=== PATIENT | female | born 1940 | race Caucasian/White ===

== ENCOUNTER 2017-09-02 18:05 | Inpatient (IN) | payer MEDICARE, OTHER ==
[~2017-09-02] VITALS: Ht 152.4 cm; Wt 55.3 kg
[2017-09-02] MEDS ORDERED: MG T1TAB4 PO (18:51)
[2017-09-02] MEDS ORDERED: TRAZ-144 PO (18:51)
[2017-09-02] MEDS ORDERED: LISI-658 PO (18:51)
[2017-09-02] MEDS ORDERED: ACET325T53 PO (18:51)
[2017-09-02] MEDS ORDERED: ACET500C4 PO (18:51)
[2017-09-02] MEDS ORDERED: CHOL400T58 PO (18:51)
[2017-09-02] MEDS ORDERED: HYDR50TA68 PO ×2 (18:51)
[2017-09-02] MEDS ORDERED: SIME80TA15 PO (18:51)
[2017-09-02] MEDS ORDERED: POLY17PO4 PO (18:51)
[2017-09-02] MEDS ORDERED: CLON0.1T14 PO (18:51)
[2017-09-02] MEDS ORDERED: CALC500T3 PO (18:51)
[2017-09-02] MEDS ORDERED: BUSP10TA3 PO (18:51)
[2017-09-02] MEDS ORDERED: ACET-73 PO (18:51)
[2017-09-02] MEDS ORDERED: VENL150C2 PO (18:51)
[2017-09-02] MEDS ORDERED: LORA-258 PO ×3 (18:51)
[2017-09-02] MEDS ORDERED: SENN-167 PO (18:51)
[2017-09-02] MEDS ORDERED: AMLO10TA4 PO (18:51)
[2017-09-02] MEDS ORDERED: LANS15TA5 PO (18:51)
[2017-09-02] MEDS ORDERED: DOCU-141 PO (18:51)
--- NOTE | 2017-09-02 19:05 | NUR ---
PT IS IN ROOM #1B. DR VARELA EVALUATED THE PT.
--- NOTE | 2017-09-02 19:26 | NUR ---
Received report from FERMIN Noland. Assumed care of pt at this time. Pt ambulated to and from br with steady shuffled gait. Labs drawn and sent. UA collected and sent. Xray obtained. Pt refuses CT. Dr. Gagnon notified. Pt awaiting med clearance for admission to [facility]
[2017-09-02 19:34] LABS: *BILIRUBIN,URIN NEGATIVE (NEGATIVE); *BLOOD, URINE Trace-intact (NEGATIVE); *CLARITY,URINE CLEAR (CLEAR); *COLOR,URINE YELLOW (YELLOW); *KETONES,URINE NEGATIVE (NEGATIVE); *PROTEIN,URINE NEGATIVE (NEGATIVE); *UROBILINOGEN,URINE 0.2 E.U./dl (NORMAL); LEUKOCYTE ESTERASE ,URINE NEGATIVE (NEGATIVE); NITRITE, URINE NEGATIVE (NEGATIVE); UGLUCOSE NEGATIVE (NEGATIVE)
[2017-09-02 19:39] LABS: BASOPHILS # (AUTO) 0.1 K/uL (0.0-8.0); BASOPHILS % (AUTO) 0.8 % (0.0-2.0); EOSINOPHILS % (AUTO) 0.5 % (0.0-7.0); HEMATOCRIT 43.4 % (37-47); HEMOGLOBIN 14.8 G/DL (12.0-16.0); LYMPHOCYTES # (AUTO) 0.9 K/UL (0.8-4.8); LYMPHOCYTES % (AUTO) 10.4 % (20.5-51.5); MEAN CORPUSCULAR HEMOGLOBIN 29.9 UUG (27.0-31.0); MEAN CORPUSCULAR HGB CONC 34 g/dL (32.0-37.0); MEAN CORPUSCULAR VOLUME 87.8 FL (81.0-99.0); MONOCYTES # (AUTO) 0.5 K/UL (0.1-1.30); MONOCYTES % (AUTO) 5.6 % (0.0-11.0); NEUTROPHILS % (AUTO) 82.7 % (38.5-71.5); PLATELET COUNT (AUTO) 254 K/UL (150-450); RED BLOOD CELL COUNT(AUTO) 4.94 MIL/UL (4.2-5.4); WHITE BLOOD COUNT (AUTO) 8.5 K/UL (4.0-11.2)
[2017-09-02 19:43] LABS: CARBON DIOXIDE 24 mmol/L (21-32); CHLORIDE 103 mmol/L (98-107); GLUCOSE 207 mg/dL (74-106); POTASSIUM 3.5 mmol/L (3.5-5.1); UREA NITROGEN, BLOOD 17 mg/dL (7-18)
[2017-09-02 19:48] LABS: ALANINE AMINOTRANSFERASE 30 U/L (14-59); ALKALINE PHOSPHATASE 67 U/L (50-136); ASPARTATE AMINOTRANSFERASE 22 U/L (15-37); BILIRUBIN,DIRECT 0.1 mg/dL (0.0-0.2); BILIRUBIN,TOTAL 0.2 mg/dL (0.2-1.0); TOTAL PROTEIN, SERUM 8.5 g/dL (6.4-8.2)
[2017-09-02 19:51] LABS: ACETAMINOPHEN < 2.0 ug/mL (10-30)
[2017-09-02 19:52] LABS: ETHANOL < 3 MG/DL (0-0)
[2017-09-02 20:05] LABS: *AMPHETAMINE, URINE NEGATIVE (NEGATIVE); *BARBITURATE, URINE NEGATIVE (NEGATIVE); *CANNABINOID, URINE NEGATIVE (NEGATIVE); *COCCAINE, URINE NEGATIVE (NEGATIVE); *OPIATE, URINE NEGATIVE (NEGATIVE); *PHENCYCLIDINE SCREEN,URINE NEGATIVE (NEGATIVE)
[2017-09-02 20:11] LABS: BACTERIA,URINE FEW /HPF (NONE SEEN); SQUAMOUS EPITHELIAL CELL,UR FEW /HPF (NONE SEEN); WBC,URINE 0-3 /HPF (0-3)
[2017-09-02] MEDS ORDERED: LEVOFLOXACIN 750 MG/D5W 150 ML PIGGYBACK IV ONE (20:15)
[2017-09-02] MEDS ORDERED: IV NORMAL SALINE 1000 ML BAG IV ONE (20:15)
[2017-09-02 20:33] LABS: THYROID STIMULATING HORMONE 2.287 mIU/mL (0.358-3.740)
[2017-09-02] MEDS ORDERED: LORAZEPAM 2 MG/1 ML VIAL IV ONE (20:45)
--- NOTE | 2017-09-02 21:10 | NUR ---
Call placed to [facility], Dr. Webb will be paged.
[2017-09-02] MEDS ORDERED: LEVOFLOXACIN 750MG/D5W 150 ML IV ONE (21:34)
[2017-09-02] MEDS ORDERED: LORAZEPAM 2 MG/1 ML VIAL ONE (21:35)
[2017-09-02 22:30] VITALS: BP 157/88
--- NOTE | 2017-09-02 22:49 | NUR ---
discontinue ron ,d/c patient to pysch unit .
--- NOTE | 2017-09-02 23:00 | NUR ---
received to care, from the emergency room, on a 72 hour hold for being gravely disabled, a resident of the [facility]. according to the chart, she has been increasingly depressed and anxious, to the extent that she has been unable to drink water, or to get proper sleep. upon arrival on the unit, she was cooperative, but anxious. PRN medications offered, but she declined. currently sitting at nurses station. no distress noted.
[2017-09-02 23:30] VITALS: BP 142/88
[2017-09-02] MEDS ORDERED: MAGNESIUM HYDROXIDE 30 ML LIQUID UDC PO PRN (23:30)
[2017-09-02] MEDS ORDERED: MAG HYDROX/AL HYDROX/SIMETH 30 ML LIQUID UDC PO PRN (23:30)
[2017-09-02] MEDS ORDERED: TEMAZEPAM 7.5 MG CAPSULE PO PRN (23:30)
[2017-09-03] VITALS (8 sets, daily range): BP systolic 133–200; BP diastolic 70–103
--- NOTE | 2017-09-03 00:08 | NUR ---
PRN restoril given for insomnia.
[2017-09-03] MEDS ORDERED: TEMAZEPAM 7.5 MG CAPSULE ONE (00:21)
[2017-09-03] MEDS ORDERED: ACETAMINOPHEN 325 MG TABLET ONE (01:10)
[2017-09-03] MEDS: ACETAMINOPHEN 325 MG TABLET PO PRN ×2 (01:14→22:00)
--- NOTE | 2017-09-03 01:14 | NUR ---
PRN tylenol given for 5/10 bilateral shoulder pain.
--- NOTE | 2017-09-03 02:00 | NUR ---
appears to be asleep. no distress noted.
[2017-09-03] MEDS: LORAZEPAM 1 MG TABLET PO PRN ×3 (04:51→21:28)
--- NOTE | 2017-09-03 04:52 | NUR ---
pt is now awake. b/p is currently 200/100, hr 68. denies any sx, other than anxiety. PRN ativan was given, and [facility] was paged.
[2017-09-03] MEDS ORDERED: LORAZEPAM 1 MG TABLET ONE (04:58)
--- NOTE | 2017-09-03 05:20 | NUR ---
b/p is now 179/103, hr 100. still no call back from [facility]: exchange was recalled. they stated they would repage md site controller. darrel graham, nursing stewardess supervisor, was notified.
--- NOTE | 2017-09-03 05:40 | NUR ---
b/p is now 145/89, hr 94. will continue to monitor closely.
--- NOTE | 2017-09-03 06:00 | NUR ---
slept 2.0 hours, total.
--- NOTE | 2017-09-03 06:20 | NUR ---
ALISIA NEWMAN CALLED BACK, HE WAS NOTIFY OF NEW ADMISSION AND TO RECONCILE MEDICATION. HE STATED THAT HE WILL RECONCILE HER MEDICATION. PATIENT IN NO ACUTE DISTRESS. WILL CONTINUE TO MONITOR
[2017-09-03] MEDS ORDERED: hydrALAZINE HCL 50 MG TABLET PO PRN (06:45)
--- NOTE | 2017-09-03 06:45 | NUR ---
b/p is now 164/98, hr 92
[2017-09-03] MEDS: AMLODIPINE 10 MG TABLET PO SCH (09:04)
[2017-09-03] MEDS: LISINOPRIL 20 MG TABLET PO SCH ×2 (09:05→16:54)
[2017-09-03] MEDS: hydrALAZINE HCL 50 MG TABLET PO SCH ×2 (09:05→16:54)
--- NOTE | 2017-09-03 12:19 | NUR ---
Initial DC Plan: Patient currently resides at the [facility] [[address] [place] [address]; ]. Patient asked for assistance finding a different RESIDENTIAL because she is "too young" for their facility. SW will follow up with MD and patient to discuss most appropriate discharge plans. SW will form a safe and proper discharge.
[2017-09-03] MEDS ORDERED: TRAZODONE 50 MG TABLET PO ONE (23:00)
--- NOTE | 2017-09-03 23:00 | NUR ---
received to care, visible on unit, interacting with peers, pleasant upon approach. compliant with medications and staff direction. PRN ativan was given at 2127, for anxiety. shortly after that, she was seen by Dr Nguyen, who wanted to start her on trazadone, at bedtime. dose was not given tonight, because she was already asleep, when approached. as of 2299, she remains asleep. no distress noted. will continue to monitor closely.
--- NOTE | 2017-09-04 06:00 | NUR ---
slept 7.0 hours. continues to sleep. no distress noted.
[2017-09-04 07:30] VITALS: BP 148/82
[2017-09-04] MEDS: AMLODIPINE 10 MG TABLET PO SCH (08:16)
[2017-09-04] MEDS: hydrALAZINE HCL 50 MG TABLET PO SCH ×2 (08:16→17:07)
[2017-09-04] MEDS: LISINOPRIL 20 MG TABLET PO SCH ×2 (08:17→17:07)
[2017-09-04] MEDS: CLONAZEPAM 0.5 MG TABLET PO SCH ×3 (08:19→17:07)
[2017-09-04] MEDS: ACETAMINOPHEN 325 MG TABLET PO PRN (09:44)
[2017-09-04 16:00] VITALS: BP 144/70
[2017-09-04 20:03] VITALS: BP 117/69
[2017-09-04] MEDS ORDERED: TRAZODONE 50 MG TABLET PO ONE (21:00)
[2017-09-04] MEDS ORDERED: TRAZODONE 50 MG TABLET ONE (21:16)
--- NOTE | 2017-09-04 22:00 | NUR ---
received to care, isolative in room, pleasant upon approach. interacts minimally with select peers. started on trazadone, this evening. seen by Dr Nguyen. as of 2199, she appears to be asleep. no distress noted. will continue to monitor closely.
--- NOTE | 2017-09-05 06:00 | NUR ---
slept 7.5 hours. continues to sleep. no distress noted.
[2017-09-05 07:30] VITALS: BP 147/80
[2017-09-05] MEDS: CLONAZEPAM 0.5 MG TABLET PO SCH ×3 (08:50→16:16)
[2017-09-05] MEDS: AMLODIPINE 10 MG TABLET PO SCH (08:50)
[2017-09-05] MEDS: LISINOPRIL 20 MG TABLET PO SCH ×2 (08:50→16:29)
[2017-09-05] MEDS: hydrALAZINE HCL 50 MG TABLET PO SCH ×2 (08:51→16:28)
[2017-09-05] MEDS: ACETAMINOPHEN 325 MG TABLET PO PRN ×2 (16:16→23:50)
[2017-09-05 16:33] VITALS: BP 142/79
[2017-09-05 19:46] VITALS: BP 146/80
[2017-09-05] MEDS: TRAZODONE 50 MG TABLET PO SCH ×2 (21:00→21:37)
--- NOTE | 2017-09-05 23:30 | NUR ---
received to care, visible on unit, interacting with peers, pleasant upon approach. compliant with medications and staff direction. as of 2329, she appears to be falling asleep. no distress noted. will continue to monitor closely.
[2017-09-06 07:30] VITALS: BP 138/76
[2017-09-06] MEDS: LISINOPRIL 20 MG TABLET PO SCH ×2 (08:41→16:50)
[2017-09-06] MEDS: AMLODIPINE 10 MG TABLET PO SCH (08:41)
[2017-09-06] MEDS: CLONAZEPAM 0.5 MG TABLET PO SCH ×3 (08:41→16:49)
[2017-09-06] MEDS: hydrALAZINE HCL 50 MG TABLET PO SCH ×2 (08:42→16:50)
[2017-09-06 16:28] VITALS: BP 120/68
[2017-09-06] MEDS: LORAZEPAM 1 MG TABLET PO PRN (19:41)
[2017-09-06 21:02] VITALS: BP 117/68
[2017-09-06] MEDS: TRAZODONE 50 MG TABLET PO SCH (21:54)
[2017-09-06] MEDS: ACETAMINOPHEN 325 MG TABLET PO PRN (22:25)
[2017-09-07 07:30] VITALS: BP 151/80
[2017-09-07] MEDS: CLONAZEPAM 0.5 MG TABLET PO SCH ×2 (08:31→12:14)
[2017-09-07] MEDS: AMLODIPINE 10 MG TABLET PO SCH (08:32)
[2017-09-07] MEDS: hydrALAZINE HCL 50 MG TABLET PO SCH (08:32)
[2017-09-07 08:33] VITALS: BP 151/80
[2017-09-07] MEDS: LISINOPRIL 20 MG TABLET PO SCH (08:33)
--- NOTE | 2017-09-07 09:59 | NUR ---
DC Note: Patient will be discharged to the [facility] [[address] [place] [address]; [phone]] via private transportation provided by the [facility]. VIK spoke with Vicenta at the [facility] to confirm discharge plans. Patient is aware and agreeable to discharge plans. Patient will follow up with Dr. Hendrix (Electrical Discharge Machine Operator) and Dr. Marta Ty (Psychiatrist) [[phone]]. Addendum: 09/07/17 at 1003 by LALO CHERY Per Vicenta at the [facility], transportation will arrive at 1pm.
[2017-09-07] MEDS: ACETAMINOPHEN 325 MG TABLET PO PRN (12:15)
--- NOTE | 2017-09-07 13:30 | NUR ---
GPS: Nursing Notes: Discharge Notes: Patient is awake and responding to her name, cooperative and pleasant with staff, compliant with her medications, denies any SI/HI, denies any AH/VH, denies any pain or discomfort, denies any SOB, took all her belongings with her, A/Ox4, ambulatory, self care, discharge to [facility] [place] [address] [place] [address] , report given to nurse, Sirena LOWERY, Dr. Hendrix (microbiology lab analyst) and Dr. Marta Ty (psychiatrist) will continue with aftercare at the facility, transported via facility's own transportation.
== END 2017-09-07 13:30 | DRG 881 ==
LOC: ER 18:05 → GPS 22:25
PROVIDERS: ADMIT Psychiatry & Neurology Psychiatry; ATTEND Internal Medicine
DX: F32.9 Major depressive disorder, single episode, unspecified (principal); E87.2 Acidosis; E86.0 Dehydration; I10 Essential (primary) hypertension; K21.9 Gastro-esophageal reflux disease without esophagitis; Z73.6 Limitation of activities due to disability; E78.5 Hyperlipidemia, unspecified; F41.9 Anxiety disorder, unspecified; M81.0 Age-related osteoporosis without current pathological fracture; R73.9 Hyperglycemia, unspecified
CPT/HCPCS: 36415; 70030-TC; 71010; 80307; 83605; 84443; 85025; 85730; 87040; 87086; 93005; A4663; G0480; G0480-TC; J1956; J2060; J7030